=== PATIENT | female | born 1985 | race Caucasian/White ===

== ENCOUNTER 2017-02-08 12:07 | Emergency (ER) | payer OTHER ==
[2017-02-08 12:09] VITALS: BP 96/63
--- NOTE | 2017-02-08 12:11 | ED Physician Documentation ---
PD HPI LOWER EXT INJURY - Stated complaint Stated Complaint: R LEG INJURY/5 MOS PREG - Chief complaint Chief Complaint: Ext Problem - History obtained from History obtained from: Patient, EMS - History of Present Illness PD HPI LOW EXT INJURY LOCATION: Right, Knee (5 months , [place] right [place], [place] dog [place] into her. It relocated but she was not able to immediately walk or bear weight, no other injuries. She declines pain medication. She has not had a patellar dislocation before.) Review of Systems Constitutional: reports: Reviewed and negative Cardiac: reports: Reviewed and negative Respiratory: reports: Reviewed and negative PD PAST MEDICAL HISTORY - Present Medications Home Medications: Ambulatory Orders Medication Instructions Recorded Confirmed Pnv No.122/Iron/Folic Acid 1 tab PO DAILY 02/08/17 02/08/17 [ Multi Tablet] - Allergies Allergies/Adverse Reactions: Allergies Allergy/AdvReac Type Severity Reaction Status Date / Time No Known Drug Allergies Allergy Verified 02/08/17 12:09 PD ED PE NORMAL - Vitals Vital signs reviewed: Yes - General General: Alert and oriented X 3 - Extremities Extremities: Other (Right knee is nontender with normally aligned patella and no effusion. 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, Normal speech - Psych Psych: Normal mood, Normal affect Results - Vitals Vitals: Vital Signs - 24 hr 02/08/17 12:07 Temperature 36.8 C Heart Rate 68 Respiratory 20 Rate Blood Pressure 96/63 O2 Saturation 100 Oxygen O2 Source Room air - Rads (name of study) Rt Knee 4v XR Radiology: EMP read contemporaneously (Small joint effusion without acute bony abnormality) Departure - Departure Disposition: 01 Home, Self Care Clinical Impression: Dislocation of right patella Qualifiers: Encounter type: initial encounter Qualified Code(s): S83.004A - Unspecified dislocation of right patella, initial encounter Condition: Good Record reviewed to determine appropriate education?: Yes Instructions: ED Dislocation Patella Follow-Up: [facility] [Provider Group] - Within 1 week Comments: You may walk and bear weight as tolerated, but also ice, elevate, and Tylenol as needed for pain.
--- NOTE | 2017-02-08 13:00 | XRAY Preliminary Report ---
Exam: XR Knee 4 View RT IMPRESSION: Small joint effusion. No fracture. [facility] SITE ID: [id number]
--- NOTE | 2017-02-08 13:03 | XRAY Report ---
EXAM: RIGHT KNEE RADIOGRAPHY EXAM DATE: 02/08/2017 12:49 PM. CLINICAL HISTORY: Knee inj, struck by a dog along the lateral side of knee. COMPARISON: None. TECHNIQUE: 4 views. FINDINGS: Bones: Normal. No fractures or bone lesions. Joints: Small joint effusion. Soft Tissues: Normal. No soft tissue swelling. IMPRESSION: Small joint effusion. No fracture. [facility] Referring Provider Line: [phone] SITE ID: [id number]
== END 2017-02-08 13:17 | disposition home or self-care (01) ==
LOC: ED 12:07
DX: O26.892 Other specified pregnancy related conditions, second trimester (principal); S83.004A Unspecified dislocation of right patella, initial encounter; W54.1XXA Struck by dog, initial encounter; Y92.832 Beach as the place of occurrence of the external cause; Z3A.20 20 weeks gestation of pregnancy
CPT/HCPCS: 29530; 99283